=== PATIENT | female | born 1990 | race Caucasian/White ===

== ENCOUNTER 2020-09-26 12:29 | Emergency (ER) | payer OTHER ==
[2020-09-26 12:54] VITALS: BMI 29.0
[2020-09-26] MEDS ORDERED: METOCLOPRAMIDE HCL INJECTION 10 MG/2 ML VIAL IVPB ONE (13:26)
[2020-09-26] MEDS ORDERED: SODIUM CHLORIDE 0.9% 500 ML INFUS.BAG IV ONE (13:27)
[2020-09-26] MEDS ORDERED: METOCLOPRAMIDE HCL INJECTION 10 MG/2 ML VIAL ONE (13:38)
[2020-09-26 13:50] LABS: BASO % 1.2 % (0-2.0); EOS % 0.8 % (0-4.5); HEMATOCRIT 39.5 % (32.4-45.2); MCH 26.3 pg (25.7-33.7); MCHC 32.8 g/dl (32.0-36.0); MEAN CELL VOLUME 80.1 fl (80-96); MONO % 7.1 % (3.8-10.2); NEUT % 69.9 % (42.8-82.8); PLATELET COUNT 297 10^3/uL (134-434); RBC 4.93 M/mm3 (3.60-5.2); RDW 15.4 % (11.6-15.6); WHITE BLOOD COUNT 11.3 K/mm3 (4.0-10.0)
[2020-09-26] MEDS ORDERED: CASIRIVIMAB (REGN10933) 600 MG, IMDEVIMAB (REGN10987) 600 MG in SODIUM CHLORIDE 100 ML IVPB ONE (14:53)
[2020-09-26 15:04] LABS: CHLORIDE 105 mmol/L (98-107); SODIUM 138 mmol/L (136-145)
[2020-09-26 15:05] LABS: CALCIUM 8.3 mg/dL (8.5-10.1)
[2020-09-26 15:07] LABS: ANION GAP 7 MMOL/L (8-16); BLOOD UREA NITROGEN 10.9 mg/dL (7-18); CO2 26 mmol/L (21-32); GLUCOSE,RANDOM 97 mg/dL (74-106); MAGNESIUM 1.8 mg/dL (1.8-2.4)
[2020-09-26 15:09] LABS: SGPT/ALT 21 U/L (13-61)
[2020-09-26 15:10] LABS: CREATININE 0.7 mg/dL (0.55-1.3); SGOT/AST 12 U/L (15-37)
[2020-09-26 15:11] LABS: BILIRUBIN,TOTAL 0.3 mg/dL (0.2-1); TOT PROT 6.6 g/dl (6.4-8.2)
[2020-09-26 15:12] LABS: ALK PHOS 82 U/L (45-117)
[2020-09-26 18:43] VITALS: BP 106/67; PULSE 76; TEMP 98.7
== END 2020-09-26 19:06 | disposition home or self-care (01) ==
LOC: JER 12:29
PROC: 3E03329 Introduction of Other Anti-infective into Peripheral Vein, Percutaneous Approach (ICD-10-PCS; principal; 2020-09-26)
PROC: 3E033NZ Introduction of Analgesics, Hypnotics, Sedatives into Peripheral Vein, Percutaneous Approach (ICD-10-PCS; 2020-09-26)
DX: U07.1 COVID-19 (principal); R11.10 Vomiting, unspecified; R07.9 Chest pain, unspecified; E86.0 Dehydration
CPT/HCPCS: 36415; 71045-TC-FY; 80053; 83735; 84484; 84703; 85025; 93005; 93010; 99284-25; M0243; Q0243

== ENCOUNTER 2021-09-20 11:53 | Emergency (ER) | payer OTHER ==
[2021-09-20 12:17] VITALS: BP 117/72; PULSE 79; RESP 20; TEMP 97.7; BMI 32.3
[2021-09-20] MEDS ORDERED: METOCLOPRAMIDE HCL INJECTION 10 MG/2 ML VIAL IVPUSH ONE (12:31)
[2021-09-20] MEDS ORDERED: ACETAMINOPHEN 1000 MG/100 ML BAG IVPB ONE (12:31)
[2021-09-20] MEDS ORDERED: SODIUM CHLORIDE 1,000 ML IV STA (12:31)
[2021-09-20] MEDS ORDERED: METOCLOPRAMIDE HCL INJECTION 10 MG/2 ML VIAL ONE (13:46)
[2021-09-20] MEDS ORDERED: ACETAMINOPHEN INJECTION 100 ML IVPB ONE (13:46)
[2021-09-20 13:53] LABS: BASO % 0.6 % (0-2.0); HEMATOCRIT 40.2 % (32.4-45.2); HEMOGLOBIN 12.8 GM/dL (10.7-15.3); LYMPH % 16.1 % (8-40); MCH 25.6 pg (25.7-33.7); MEAN PLT VOLUME 9.5 fl (7.5-11.1); MONO % 5.9 % (3.8-10.2); NEUT % 76.4 % (42.8-82.8); PLATELET COUNT 328 10^3/uL (134-434); RBC 5.02 M/mm3 (3.60-5.2); RDW 15.2 % (11.6-15.6); WHITE BLOOD COUNT 11.2 K/mm3 (4.0-10.0)
[2021-09-20 14:04] LABS: CALCIUM 9.2 mg/dL (8.5-10.1)
[2021-09-20 14:05] LABS: ALBUMIN 3.3 g/dl (3.4-5.0); BLOOD UREA NITROGEN 11.3 mg/dL (7-18)
[2021-09-20 14:08] LABS: CREATININE 0.7 mg/dL (0.55-1.3)
[2021-09-20 14:09] LABS: TOT PROT 7.2 g/dl (6.4-8.2)
[2021-09-20 14:10] LABS: BILIRUBIN,TOTAL 0.5 mg/dL (0.2-1)
== END 2021-09-20 15:50 | disposition home or self-care (01) ==
LOC: JER 11:53
PROC: 3E0333Z Introduction of Anti-inflammatory into Peripheral Vein, Percutaneous Approach (ICD-10-PCS; principal; 2021-09-20)
PROC: 3E033GC Introduction of Other Therapeutic Substance into Peripheral Vein, Percutaneous Approach (ICD-10-PCS; 2021-09-20)
PROC: 3E033GC Introduction of Other Therapeutic Substance into Peripheral Vein, Percutaneous Approach (ICD-10-PCS; 2021-09-20)
PROC: 3E0337Z Introduction of Electrolytic and Water Balance Substance into Peripheral Vein, Percutaneous Approach (ICD-10-PCS; 2021-09-20)
DX: G44.89 Other headache syndrome (principal)
CPT/HCPCS: 36415; 80053; 84703; 85025; 96361; 96374; 96375; 99284-25; C9803-CS; U0003; U0005